=== PATIENT | female | born 1945 | race Caucasian/White ===

== ENCOUNTER 2017-02-19 18:00 | Inpatient (IN) ==
[2017-02-19] MEDS ORDERED: Ipratropium/Albuterol Neb 3 ML IH ONE (18:39)
[2017-02-19] MEDS ORDERED: methylPREDNISolone 125 MG/2 ML VIAL IVP ONE (18:39)
--- NOTE | 2017-02-19 18:41 | Emergency Department Note ---
START Narrative - START START: Patient emergency department with worsening shortness of breath. Coughing up colored phlegm. No fever. Has seen her primary provider bit on a Medrol pack, doxycycline, and breathing treatments. Getting worse. On exam she is visibly dyspneic. Diffuse expiratory wheezing and decreased air exchange. Plan. Steroids. Cardiac workup. Will be evaluated by overnight caregiver.
[2017-02-19] MEDS ORDERED: Levofloxacin 750 MG/150 ML 750 MG/150 ML BAG IVPB ONE (19:28)
[2017-02-19 19:29] LABS: Basophils % 0.3 %; Eosinophils # 0.2 K/mcL (0.0-0.6); Eosinophils % 1.8 %; Hematocrit 41.9 % (35.3-44.9); Hemoglobin 14.1 g/dL (11.5-15.4); Lymphocytes # 1.2 K/mcL (0.6-4.6); Lymphocytes % 12.6 %; Mean Corpuscular HGB Conc 33.7 g/dL (31.6-35.5); Mean Corpuscular Hemoglobin 30.9 pg (28.0-33.3); Mean Corpuscular Volume 91.9 fL (83.0-100.0); Monocytes # 0.8 K/mcL (0.0-1.3); Monocytes % 8.3 %; Neutrophils # 7.1 K/mcL (1.6-8.9); Platelet Count 285 K/mcL (140-400); Red Blood Count 4.56 M/mcL (3.82-4.97)
[2017-02-19 20:04] LABS: BUN/Creatinine Ratio 14 (6-26); Blood Urea Nitrogen 11 mg/dL (7-20); Calcium 9.9 mg/dL (8.6-10.8); Carbon Dioxide 28 mEq/L (19-29); Chloride 96 mEq/L (98-109); Glucose 109 mg/dL (70-99); Osmolality,Calculated 280 (280-300); Potassium 3.8 mEq/L (3.5-4.5); Sodium 135 mEq/L (136-145); eGFR For African Americans > 60 (> 60); eGFR For Non-African Americans > 60 (> 60)
--- NOTE | 2017-02-19 20:08 | Emergency Department Note ---
Disposition Clinical Impression: CAP (community acquired pneumonia), Acute exacerbation of chronic obstructive airways disease Disposition: Admitted As Inpatient Condition: Fair Forms: ED Satisfaction Letter Time of Disposition: 20:14 SOB HPI - General Chief Complaint: ED Shortness of Breath/Dyspnea Stated Complaint: MERRY Time Seen by Provider: 02/19/17 18:35 Source: patient, family Mode of arrival: ambulatory Limitations: no limitations Nursing Notes Reviewed: Yes Vital Signs Reviewed: Yes - History of Present Illness 71-year-old female history of COPD, hypertension and on 2 L at baseline, presents with shortness of breath cough and wheeze for the last week. Patient states that she has had multiple courses of antibiotics she was on azithromycin which she completed and then was prescribed doxycycline 2 days ago by her primary care physician. She had symptoms for about a week. She also has been prescribed a prednisone pack does not improve her symptoms. She takes daily albuterol and controller medications and not an provider symptoms, she is had admissions for COPD in the past but never been intubated. Patient is a nonsmoker for the last 10 years. She denies chest pain, reports subjective fevers and chills, denies abdominal pain nausea vomiting diarrhea hematuria hematemesis hematochezia Pt Subjective Complaint: shortness of breath Onset (ago): week(s) (1) Context: recent illness Severity: moderate Improves with: oxygen Worsens with: nothing Known history of: COPD Associated symptoms: Reports: denies other symptoms, fever, cough, wheezing. Denies: chest pain, pain with inspiration Treatment prior to arrival: none Cough present: Yes Cough Description: Voluntary Cough Frequency: Continuous Sputum production: No Sputum Amount: Scant Sputum Color: Clear - Related Data Previous Rx's Medication Instructions Recorded Levofloxacin [Levaquin] 750 mg PO DAILY #7 tablet 10/17/15 Promethazine/Codeine 5 ml PO Q6HR #240 ml 10/17/15 [Phenergan/Codeine] Allergies Allergy/AdvReac Type Severity Reaction Status Date / Time No Known Allergies Allergy Verified 02/19/17 18:09 All systems ED: reviewed and negative except as stated. Constitutional: Denies: fever, chills Eyes: Denies: eye pain, eye discharge Cardiovascular: Denies: chest pain, palpitations Respiratory: Reports: as per HPI, cough, dyspnea, wheezes, sputum production. Denies: hemoptysis Gastrointestinal: Denies: abdominal pain, nausea, vomiting Genitourinary: Denies: urgency, dysuria Musculoskeletal: Denies: back pain, neck pain Integumentary: Denies: rash, abrasion Neurological: Denies: headache, weakness Psychiatric: Denies: anxiety, depression Past Medical History - Past Medical History Attestation: Yes The following information was validated with the patient. Source: patient Medical history: Reports: COPD, hyperlipidemia Surgical history: Reports: no surgical history Psychiatric history: Reports: no psych history CORRECTIONAL PROBATION OFFICER history: Reports: no CORRECTIONAL PROBATION OFFICER history - Social History Smoking Status: Former smoker Smokeless Tobacco Status: No Alcohol use: Reports: none Drug use: Reports: none Physical Exam Constitutional: No respiratory distress, mild tachycardia. Hypoxia 93% on 2 L HEENT: NCAT, sclera anicteric, PERRLA bilaterally, normal external ears bilaterally, nasal septum nondeviated, average dentition, MMM Neck: normal inspection, neck is supple, trachea midline Resp: Coarse inspiratory and expiratory wheezes. CV: Tachycardia, no m/g/r GI: normal inspection, Soft, NTND, BS present Back: normal inspection, no tenderness to palpation Skin: No rashes, skin warm, dry, intact - General General appearance: alert, in no apparent distress Course Course Narrative: 89 female failed outpatient treatment for COPD and bronchitis with steroids and azithromycin and doxycycline regimens, patient with worsening cough shortness of breath, will get lactate blood cultures basic lab work and reassess. Ordering do nebs 3 respiratory therapy bedside Solu-Medrol IV - Reevaluation(s) Reevaluation #1: With some improvement in shortness of breath and wheezing, however still moderately dyspneic on 3 L which is greater than her home baseline oxygen, will admit to hospitalist ulcers are concerned for possible pneumonia on her x-rays will treat with Levaquin at this time Dr Farley accepting admission Time: 20:13 Vital Signs Temperature 98.4 F 02/19/17 18:07 Pulse Rate 107 02/19/17 18:07 Respiratory Rate 22 02/19/17 18:07 Blood Pressure 127/83 02/19/17 18:07 O2 Sat by Pulse Oximetry 92 L 02/19/17 18:07 Temperature 98.4 F 02/19/17 18:07 Pulse Rate 90 02/19/17 19:26 Respiratory Rate 18 02/19/17 19:28 Blood Pressure 122/83 02/19/17 19:26 O2 Sat by Pulse Oximetry 93 L 02/19/17 19:28 Oxygen Delivery Oxygen Delivery Nasal Cannula Shortness of Breath/Dyspnea - Differential Diagnosis Likely: acute exacerbation of chronic obstructive airways disease, congestive heart failure, pneumonia, pulmonary embolism - Medical Records Medical records reviewed: Yes I reviewed the patient's medical records. - Lab Data Lab results reviewed: Yes I reviewed the patient's lab results. Result diagrams: 02/19/17 19:25 02/19/17 19:25 Lab Results 02/19/17 02/19/17 02/19/17 Range/Units 19:25 19:25 19:25 WBC 9.4 (4.3-11.1) K/mcL RBC 4.56 (3.82-4.97) M/mcL Hgb 14.1 (11.5-15.4) g/dL Hct 41.9 (35.3-44.9) % MCV 91.9 (83.0-100.0) fL MCH 30.9 (28.0-33.3) pg MCHC 33.7 (31.6-35.5) g/dL RDW 13.0 (11.5-14.5) % Plt Count 285 (140-400) K/mcL MPV 9.0 L (9.4-12.4) fL Immature Gran % 1.0 (0-4) % Seg Neutrophils % 76.0 % Lymphocytes % 12.6 % Monocytes % 8.3 % Eosinophils % 1.8 % Basophils % 0.3 % Neutrophils # 7.1 (1.6-8.9) K/mcL Lymphocytes # 1.2 (0.6-4.6) K/mcL Monocytes # 0.8 (0.0-1.3) K/mcL Eosinophils # 0.2 (0.0-0.6) K/mcL Basophils # 0.0 (0.0-0.2) K/mcL Sodium 135 L (136-145) mEq/L Potassium 3.8 (3.5-4.5) mEq/L Chloride 96 L (98-109) mEq/L Carbon Dioxide 28 (19-29) mEq/L BUN 11 (7-20) mg/dL Creatinine 0.78 (0.57-1.11) mg/dL Est GFR ( Amer) > 60 (> 60) Est GFR (Non-Af Amer) > 60 (> 60) BUN/Creatinine Ratio 14 (6-26) Glucose 109 H (70-99) mg/dL Calculated Osmolality 280 (280-300) Calcium 9.9 (8.6-10.8) mg/dL Troponin I 0.00 (0-0.03) ng/mL B-Natriuretic Peptide (0-100) pg/mL 02/19/17 Range/Units 19:25 WBC (4.3-11.1) K/mcL RBC (3.82-4.97) M/mcL Hgb (11.5-15.4) g/dL Hct (35.3-44.9) % MCV (83.0-100.0) fL MCH (28.0-33.3) pg MCHC (31.6-35.5) g/dL RDW (11.5-14.5) % Plt Count (140-400) K/mcL MPV (9.4-12.4) fL Immature Gran % (0-4) % Seg Neutrophils % % Lymphocytes % % Monocytes % % Eosinophils % % Basophils % % Neutrophils # (1.6-8.9) K/mcL Lymphocytes # (0.6-4.6) K/mcL Monocytes # (0.0-1.3) K/mcL Eosinophils # (0.0-0.6) K/mcL Basophils # (0.0-0.2) K/mcL Sodium (136-145) mEq/L Potassium (3.5-4.5) mEq/L Chloride (98-109) mEq/L Carbon Dioxide (19-29) mEq/L BUN (7-20) mg/dL Creatinine (0.57-1.11) mg/dL Est GFR ( Amer) (> 60) Est GFR (Non-Af Amer) (> 60) BUN/Creatinine Ratio (6-26) Glucose (70-99) mg/dL Calculated Osmolality (280-300) Calcium (8.6-10.8) mg/dL Troponin I (0-0.03) ng/mL B-Natriuretic Peptide 33 (0-100) pg/mL - Radiology Data Radiology results reviewed: Yes I reviewed the patient's radiology results. Chest X-Ray 02/19/17 18:39 IMPRESSION: New bibasilar airspace consolidation, representing either aspiration or pneumonia. RECOMMENDATION: Suggest appropriate clinical treatment, and chest x-ray follow-up in 2-4 weeks, to ensure resolution of these opacities and stability of the scattered pulmonary nodules. D/ / 02/19/2017 19:01:41 Tyrell Springer MD / [facility] [place] Interpreting Provider: Tyrell Springer MD - EKG Data EKG attestation: Yes I reviewed and interpreted this EKG. EKG shows normal: Reports: sinus rhythm Rate: Reports: normal (95 bpm WI interval 126 QRS at [address] segment elevations or depressions, flattened T waves in lead V3 and V2 and V4) Rhythm: Reports: NSR [place]/QRS: Reports: normal When compared to previous EKG there are: no significant changes Interpretation: Reports: unchanged when compared to prior tracing (date) - Core Measures AMI Core Measures Followed: No
--- NOTE | 2017-02-19 20:10 | Emergency Department Note ---
START Narrative - START START: I examined this patient and my medical decision-making was reviewed with the CONDITIONER TUMBLER OPERATOR/PA/Advanced Practice Nurse/Resident Physician. I agree with the documented findings, disposition and treatment plan as described except to the extent set forth below. ED attending note: Patient seen with emergency medicine resident Dr. Arias. Please see a copy of his note for details of the H&P, evaluation, management and disposition of this patient. We independently had [id number] contact with the patient Briefly: 71-year-old female COPD or presents with increasing shortness of breath cough and weakness. ED workup is completed. Showing new bibasal infiltrates consistent with possible pneumonia. Patient is still wheezy after 3 DuoNeb treatments. Provided 45 minutes of critical care services for this patient. Patient getting IV Levaquin & admission.
[2017-02-19] MEDS ORDERED: Albuterol 2.5 MG/3 ML NEBULIZER IH PRN (21:27)
[2017-02-19] MEDS ORDERED: Naloxone 0.4 MG/ML INJ IVP PRN (21:56)
--- NOTE | 2017-02-19 22:09 | Internal Med History&Physical ---
<Padma Curran M - Last Filed: 02/19/17 23:06> Date of Encounter: 02/19/17 Time of Encounter: 22:03 Assessment and Plan (1) Sepsis Current visit: Yes Status: Acute Patient with pneumonia, tachypnea and tachycardia, meeting sepsis criteria. Patient is afebrile and WBC is normal at 9.4. Blood cultures drawn and sent. Lactic acid normal at 1.2. IV fluids 0.9NS at 75mL/hr. Qualifiers: Sepsis type: sepsis due to unspecified organism Qualified Code(s): A41.9 - Sepsis, unspecified organism (2) CAP (community acquired pneumonia) Current visit: Yes Status: Acute Patient has had treatment with azithromycin as an outpatient and started on doxycycline 2 days ago, with worsening of symptoms. CXR shows new bibasilar consolidations and scattered pulmonary nodules. lactate normal at 1.2. IVPB levaquin daily Iv fluids 0.9NS at 75mL/hr duoneb treatments QID albuterol nebulizer Q2hr PRN titrate oxygen to maintain O2 sat > 90% (3) Acute exacerbation of chronic obstructive airways disease Current visit: Yes Status: Acute Patient with COPD, wears 2L of O2 at home. She's had worsening shortness of breath and productive cough over the last few weeks. She has been treated as an outpatient with oral steroids and azithromycin, with continued worsening of her symptoms. duoneb treatments QID albuterol nebulizer Q2 prn Symbicort BID titrate oxygen to maintain O2 sats > 92% Solumedrol 40mg IVP Q6hrs (4) Acute and chronic respiratory failure Current visit: Yes Status: Acute Patient wears 2L of O2 at home, now requiring 3L to maintain saturations > 90%. Patient is tachypnic with increased work of breathing on exam. continuous pulse oximetry consulted respiratory therapy for bipap overnight if necessary to maintain saturations. Qualifiers: Respiratory failure complication: hypoxia Qualified Code(s): J96.21 - Acute and chronic respiratory failure with hypoxia (5) DVT prophylaxis Current visit: Yes Status: Acute ambulate with assistance anti-embolic stockings Lovenox 40mg SQ daily Internal Medicine - H&P: HPI Chief complaint: shortness of breath Admitted From: Emergency Dept Plans for Post Hospital Care: Home History of present illness: Ms. Castillo is a 71 year old female with COPD, hyperlipidemia who presented to the emergency department today with worsening shortness of breath and productive cough. Patient reports she has been sick for several weeks, and has had a Z-Josh as an outpatient as well as oral steroids and just started on doxycycline, however her shortness of breath and productive cough continued to worsen. Cough is productive of thick yellow sputum. Shortness of breath worsens with activity and with talking. She reports she has had a poor appetite over the last several days as well. She denies any headache, lightheadedness, chest pain, palpitations. Denies any nausea, vomiting, abdominal pain, diarrhea. She denies any fever, chills, or sweats. Evaluation in the emergency department included a chest x-ray which showed new bibasilar airspace consolidation, representing either aspiration or pneumonia as well as scattered pulmonary nodules. White count was normal at 9.4, troponin was negative at 0.0, BNP was normal at 33. CT showed normal sinus rhythm. Lactic acid was normal at 1.2. Patient was to Respiration rate ranging from 20-28 she was also mildly tachycardic with heart rate 90-107 in the emergency room. She normally wears 2 L of nasal cannula at home, and is requiring 3 L to maintain her saturations. On exam, patient is alert and oriented. She is dyspneic and tachypneic, with increased work of breathing and use of accessory muscles. Heart has regular rate and rhythm. Past Med Surg Social Fam HX - Past Medical History Medical history: COPD, hyperlipidemia Psychiatric history: no psych history - Past Surgical History Surgical History: no surgical history - Social History Smoking Status: Former smoker (60 pack year history) Smokeless Tobacco Status: No Alcohol use: none Drug use: none - Family History Mother Family Member Ethnicity: Non- Living Status: Age at : 97 Cause of : "Old Age" Hx Family Cardiac Disorders: Yes (Blood Clots) Father Family Member Ethnicity: Non- Living Status: Age at : 80 Cause of : Stoke Hx Family Cardiac Disorders: Yes (Stroke) Internal Medicine - H&P: Meds Levofloxacin [Levaquin] 750 mg PO DAILY #7 tablet 10/17/15 [Rx] Promethazine/Codeine [Phenergan/Codeine] 5 ml PO Q6HR #240 ml 10/17/15 [Rx] Atorvastatin 40 mg PO DAILY 02/19/17 [History] Doxycycline 100 mg PO Q12HR 02/19/17 [History] Symbicort 80/4.5 2 puff IH BID 02/19/17 [History] Allergies No Known Allergies Allergy (Verified 02/19/17 18:09) All Systems PM: A 10-system review of systems was performed and is negative for pertinent findings except as documented above in the HPI. - Constitutional Constitutional: no chills, no fever(s), no night sweats - EENT Eyes: no change in vision, no discharge, no pain, no photophobia Ears: no ear discharge, no ear pain, no tinnitus Nose, mouth and throat: no dysphagia, no nasal discharge, no neck pain, no sore throat - Cardiovascular Cardiovascular ROS IM: dyspnea, dyspnea on exertion, no chest pain, no diaphoresis, no lightheadedness, no palpitations, no syncope - Respiratory Respiratory: cough, dyspnea, dyspnea on exertion, wheezing, excessive phlegm production - Gastrointestinal Gastrointestinal: no abdominal pain, no diarrhea, no hematemesis, no hematochezia, no melena, no nausea, no vomiting - Genitourinary Genitourinary: no change in urinary stream, no dysuria, no flank pain, no hematuria - Musculoskeletal Musculoskeletal ROS IM: no numbness, no tingling - Integumentary Integumentary IM: no rash, no unusual bruising - Neurological Neurological ROS: no confusion, no convulsions, no focal weakness, no numbness, no tingling, no tremor(s) - Hematologic/Lymphatic Hematologic/Lymphatic: no easy bruising - Constitutional Vitals: Temp Pulse Resp BP Pulse Ox 98.4 F 107 28 107/71 92 L 02/19/17 21:29 02/19/17 21:29 02/19/17 21:29 02/19/17 21:29 02/19/17 21:29 General appearance: Present: mild distress, A&O X 3, pleasant - Head Head exam: Present: atraumatic, normocephalic - Eye Eye exam: Present: PERRL, conjuntiva pink, sclera anicteric Pupils: Present: PERRL - Neck Neck exam general surgery: Present: supple, trachea midline. Absent: lymphadenopathy - Respiratory Respiratory exam: Present: decreased breath sounds (in bilateral bases), rhonchi. Absent: accessory muscle use, rales, wheezes - Cardiovascular Cardiovascular exam: Present: RRR, +S1, +S2. Absent: diastolic murmur, gallop, rubs, systolic murmur - GI/Abdominal GI/Abdominal exam: Present: normal bowel sounds, soft, no peritoneal signs. Absent: distended, tenderness - Extremities Exam Extremities exam: Present: warm, radial pulses palpable and symetrical. Absent : calf tenderness, cyanotic, pedal edema - Neurological Exam Neurological exam: Present: CN II-XII intact, oriented X3, no focal deficits. Absent: pronater drift, facial droop, speech deficit - Skin Skin exam: Present: dry, intact Internal Med - H&P Results - Labs CBC & Chem 7: 02/19/17 19:25 02/19/17 19:25 Labs: All Lab Results (24 Hours) 02/19/17 02/19/17 02/19/17 Range/Units 19:25 19:25 19:25 WBC 9.4 (4.3-11.1) K/mcL RBC 4.56 (3.82-4.97) M/mcL Hgb 14.1 (11.5-15.4) g/dL Hct 41.9 (35.3-44.9) % MCV 91.9 (83.0-100.0) fL MCH 30.9 (28.0-33.3) pg MCHC 33.7 (31.6-35.5) g/dL RDW 13.0 (11.5-14.5) % Plt Count 285 (140-400) K/mcL MPV 9.0 L (9.4-12.4) fL Immature Gran % 1.0 (0-4) % Seg Neutrophils % 76.0 % Lymphocytes % 12.6 % Monocytes % 8.3 % Eosinophils % 1.8 % Basophils % 0.3 % Neutrophils # 7.1 (1.6-8.9) K/mcL Lymphocytes # 1.2 (0.6-4.6) K/mcL Monocytes # 0.8 (0.0-1.3) K/mcL Eosinophils # 0.2 (0.0-0.6) K/mcL Basophils # 0.0 (0.0-0.2) K/mcL Sodium 135 L (136-145) mEq/L Potassium 3.8 (3.5-4.5) mEq/L Chloride 96 L (98-109) mEq/L Carbon Dioxide 28 (19-29) mEq/L BUN 11 (7-20) mg/dL Creatinine 0.78 (0.57-1.11) mg/dL Est GFR ( Amer) > 60 (> 60) Est GFR (Non-Af Amer) > 60 (> 60) BUN/Creatinine Ratio 14 (6-26) Glucose 109 H (70-99) mg/dL Calculated Osmolality 280 (280-300) Lactic Acid (0.5-2.2) mmol/L Calcium 9.9 (8.6-10.8) mg/dL Troponin I 0.00 (0-0.03) ng/mL B-Natriuretic Peptide (0-100) pg/mL 02/19/17 02/19/17 Range/Units 19:25 20:29 WBC (4.3-11.1) K/mcL RBC (3.82-4.97) M/mcL Hgb (11.5-15.4) g/dL Hct (35.3-44.9) % MCV (83.0-100.0) fL MCH (28.0-33.3) pg MCHC (31.6-35.5) g/dL RDW (11.5-14.5) % Plt Count (140-400) K/mcL MPV (9.4-12.4) fL Immature Gran % (0-4) % Seg Neutrophils % % Lymphocytes % % Monocytes % % Eosinophils % % Basophils % % Neutrophils # (1.6-8.9) K/mcL Lymphocytes # (0.6-4.6) K/mcL Monocytes # (0.0-1.3) K/mcL Eosinophils # (0.0-0.6) K/mcL Basophils # (0.0-0.2) K/mcL Sodium (136-145) mEq/L Potassium (3.5-4.5) mEq/L Chloride (98-109) mEq/L Carbon Dioxide (19-29) mEq/L BUN (7-20) mg/dL Creatinine (0.57-1.11) mg/dL Est GFR ( Amer) (> 60) Est GFR (Non-Af Amer) (> 60) BUN/Creatinine Ratio (6-26) Glucose (70-99) mg/dL Calculated Osmolality (280-300) Lactic Acid 1.2 (0.5-2.2) mmol/L Calcium (8.6-10.8) mg/dL Troponin I (0-0.03) ng/mL B-Natriuretic Peptide 33 (0-100) pg/mL - Diagnostic Studies Chest x-ray Additional comments: Chest X-Ray 02/19/17 18:39 IMPRESSION: New bibasilar airspace consolidation, representing either aspiration or pneumonia. RECOMMENDATION: Suggest appropriate clinical treatment, and chest x-ray follow-up in 2-4 weeks, to ensure resolution of these opacities and stability of the scattered pulmonary nodules. D/ / 02/19/2017 19:01:41 Tyrell Springer MD / [place] Interpreting Provider: Tyrell Springer MD <Titus Farley - Last Filed: 02/19/17 23:54> Internal Medicine - H&P: HPI History of present illness: Ms. Castillo is a 71 year old female All Systems PM: A 10-system review of systems was performed and is negative for pertinent findings except as documented above in the HPI. - Constitutional Vitals: Temp Pulse Resp BP Pulse Ox 98.7 F 98 16 103/73 96 02/19/17 23:17 02/19/17 23:17 02/19/17 23:18 02/19/17 23:17 02/19/17 23:18 Internal Med - H&P Results - Labs CBC & Chem 7: 02/19/17 19:25 02/19/17 19:25 - Attending Attestation I examined this patient and my medical decision-making was reviewed with the MANAGER PHOTO/PA/Advanced Practice Nurse/Resident Physician. I agree with the documented findings, disposition and treatment plan as described except to the extent set forth below. Patient with COPD, admitted with an exacerbation secondary to pneumonia. Continue with IV antibiotics, systemic steroids and nebulizer treatment.
[2017-02-19] MEDS: 0.9 % Sodium Chloride 1,000 ML IVC SCH (22:57)
[2017-02-19] MEDS: Budesonide/Formoterol 160/4.5 MDI IH SCH (23:18)
[2017-02-19] MEDS: Ipratropium/Albuterol Neb 3 ML IH SCH (23:18)
[2017-02-20] MEDS ORDERED: MethylPREDNISolone 40 MG/ML VIAL IVP SCH
[2017-02-20] MEDS: MethylPREDNISolone 40 MG/ML VIAL IVP SCH ×3 (04:00→20:38)
[2017-02-20] MEDS: Ipratropium/Albuterol Neb 3 ML IH SCH ×4 (04:16→23:05)
[2017-02-20 05:43] LABS: Basophils % 0.1 %; Hematocrit 35.1 % (35.3-44.9); Immature Granulocytes % 1.3 % (0-4); Lymphocytes # 0.7 K/mcL (0.6-4.6); Lymphocytes % 8.5 %; Mean Corpuscular Hemoglobin 31.1 pg (28.0-33.3); Mean Corpuscular Volume 94.1 fL (83.0-100.0); Mean Platelet Volume 9.6 fL (9.4-12.4); Monocytes # 0.1 K/mcL (0.0-1.3); Monocytes % 1.8 %; Neutrophils # 6.9 K/mcL (1.6-8.9); Platelet Count 250 K/mcL (140-400); Red Blood Count 3.73 M/mcL (3.82-4.97); Segmented Neutrophils % 88.3 %
[2017-02-20 05:44] LABS: Hemoglobin 11.6 g/dL (11.5-15.4)
[2017-02-20 05:58] LABS: BUN/Creatinine Ratio 13 (6-26); Blood Urea Nitrogen 11 mg/dL (7-20); Calcium 8.8 mg/dL (8.6-10.8); Carbon Dioxide 29 mEq/L (19-29); Chloride 97 mEq/L (98-109); Glucose 233 mg/dL (70-99); Osmolality,Calculated 287 (280-300); Potassium 3.8 mEq/L (3.5-4.5); Sodium 135 mEq/L (136-145); eGFR For African Americans > 60 (> 60); eGFR For Non-African Americans > 60 (> 60)
[2017-02-20] MEDS: *HR* Enoxaparin 40 MG/0.4 ML SYRINGE SQ SCH (06:38)
[2017-02-20] MEDS: Budesonide/Formoterol 160/4.5 MDI IH SCH (10:37)
[2017-02-20] MEDS: 0.9 % Sodium Chloride 1,000 ML IVC SCH (12:38)
--- NOTE | 2017-02-20 17:49 | Internal Med Progress Note ---
<Eloisa Snyder - Last Filed: 02/20/17 18:04> Date of Encounter: 02/20/17 Time of Encounter: 17:37 - Assessment and plan (1) Sepsis Current Visit: Yes Status: Resolved Assessment and plan: Resolved Patient has tachypnea and tachycardia on presentation. No fever or leukocytosis. Infectious source pneumonia Blood cultures drawn and no reports yet Lactic acid normal WBC normal this morning Tachypnea improved Tachycardia improved Will continue to monitor vitals Qualifiers: Sepsis type: sepsis due to unspecified organism Qualified Code(s): A41.9 - Sepsis, unspecified organism (2) CAP (community acquired pneumonia) Current Visit: Yes Status: Acute Assessment and plan: Patient recently treated outpatient with azithromycin and prednisone. Treated with doxycycline for 2 days prior to arrival. Had worsening of symptoms prior to arrival. Continue IV levaquin at 750 mg daily Continue IV fluids Will continue scheduled duonebs Continue IV steroids q 8 hours Continue albuterol nebulizer PRN (3) Acute and chronic respiratory failure Current Visit: Yes Status: Acute Assessment and plan: Improving Patient with increased oxygen requirement on arrival from baseline 2L to 3L Likely secondary to community acquired pneumonia and acute exacerbation of underlying COPD Oxygen requirements back to baseline 2L this morning Treatment as per pneumonia and COPD Qualifiers: Respiratory failure complication: hypoxia Qualified Code(s): J96.21 - Acute and chronic respiratory failure with hypoxia (4) Acute exacerbation of chronic obstructive airways disease Current Visit: Yes Status: Acute Assessment and plan: Likely secondary to underlying pneumonia Given use of IV steroids, will hold symbicort while in hospital. Remainder of treatment as per pneumonia - Subjective Interval history: Patient seen and examined this morning. Patient admitted overnight for increasing shortness of breath and dyspnea and found to have increased oxygen requirement on presentation to the ER of 3L from her baseline of 2L. Oateint with known history of COPD. She was treated outpatient with a z-pack and prednisone 2 weeks prior to arrival then was given doxycyline for 2 days to presentation. She had increased sputum production. Was started on treatment with IV steroids, levaquin and duonebs scheduled. Today patient reports a slight improvement in shortness of breath. She still feels like she is having difficulty breathing and can not catch her breath. She is tolerating a general diet with no nausea of vomiting. She has no other acute concerns or complaints at this time. - Constitutional Vitals: Temp Pulse Resp BP Pulse Ox 97.2 F L 87 17 112/73 96 02/20/17 16:20 02/20/17 16:20 02/20/17 16:20 02/20/17 16:20 02/20/17 16:20 General appearance: Present: mild distress, A&O X 3, pleasant - Head Head exam: Present: atraumatic, normocephalic - Eye Eye exam: Present: normal appearance. Absent: conjunctival injection - ENT ENT exam: Present: mucous membranes moist, normal external ear exam Additional comments: nasal canula in place - Neck Neck exam general surgery: Present: supple, trachea midline - Respiratory Respiratory exam: Present: wheezes (end expiratory bilaterally ). Absent: rales , rhonchi, stridor - Cardiovascular Cardiovascular exam: Present: RRR, +S1, +S2. Absent: clicks, diastolic murmur, gallop, rubs, systolic murmur - GI/Abdominal GI/Abdominal exam: Present: normal bowel sounds, soft. Absent: distended, guarding, rebound, tenderness - Extremities Exam Extremities exam: Present: normal capillary refill. Absent: pedal edema - Psychiatric Psychiatric exam: Present: normal affect, normal mood Internal Medicine: Result - Labs CBC & Chem 7: 02/20/17 05:14 02/20/17 05:14 Labs: Short CBC 02/20/17 Range/Units 05:14 WBC 7.8 (4.3-11.1) K/mcL Hgb 11.6 D (11.5-15.4) g/dL Hct 35.1 L (35.3-44.9) % Plt Count 250 (140-400) K/mcL Neutrophils # 6.9 (1.6-8.9) K/mcL BMP 02/20/17 05:14 Sodium 135 L Potassium 3.8 Chloride 97 L Carbon Dioxide 29 BUN 11 Creatinine 0.82 Glucose 233 H Calcium 8.8 - VTE Documentation of Mechanical Device: Graduated compression elastic hosiery Consult Discharge Plan - Plan Referrals: Unassigned,Provider [Non-Partnered Physician] - <Tom Schmitt - Last Filed: 02/20/17 18:19> - Assessment and plan (1) Acute and chronic respiratory failure Current Visit: Yes Status: Acute Qualifiers: Respiratory failure complication: hypoxia Qualified Code(s): J96.21 - Acute and chronic respiratory failure with hypoxia (2) Acute exacerbation of chronic obstructive airways disease Current Visit: Yes Status: Acute (3) CAP (community acquired pneumonia) Current Visit: Yes Status: Acute - Constitutional Vitals: Temp Pulse Resp BP Pulse Ox 97.2 F L 87 17 112/73 96 02/20/17 16:20 02/20/17 16:20 02/20/17 16:20 02/20/17 16:20 02/20/17 16:20 Internal Medicine: Result - Labs CBC & Chem 7: 02/20/17 05:14 02/20/17 05:14 Labs: Short CBC 02/20/17 Range/Units 05:14 WBC 7.8 (4.3-11.1) K/mcL Hgb 11.6 D (11.5-15.4) g/dL Hct 35.1 L (35.3-44.9) % Plt Count 250 (140-400) K/mcL Neutrophils # 6.9 (1.6-8.9) K/mcL BMP 02/20/17 05:14 Sodium 135 L Potassium 3.8 Chloride 97 L Carbon Dioxide 29 BUN 11 Creatinine 0.82 Glucose 233 H Calcium 8.8 - Attending Attestation I examined this patient and my medical decision-making was reviewed with the Resident Physician on 02/20/17. I agree with the documented findings, disposition and treatment plan as described except to the extent set forth below. Ms. Castillo is currently admitted for acute hypoxia and exacerbation of COPD. She is moderate to high risk due to potential for worsening respiratory status. Ms. Castillo feels a little better but not baseline. Her oxygen is back to baseline liters. No CP. No fever or chills but still with cough. No abd pain or GI symptoms. Exam Alert. Comfortable Heart reg Lungs with rhonchi I/P 1. Acute on chronic hypoxic resp failure 2. Acute exac COPD Further diagnoses and plan as above.
[2017-02-20] MEDS ORDERED: Levofloxacin 750 MG/150 ML 750 MG/150 ML BAG IVPB SCH (20:00)
[2017-02-21] MEDS: MethylPREDNISolone 40 MG/ML VIAL IVP SCH (03:51)
[2017-02-21] MEDS: 0.9 % Sodium Chloride 1,000 ML IVC SCH (03:51)
[2017-02-21] MEDS ORDERED: Benzonatate 100 MG CAPSULE PO PRN (04:00)
[2017-02-21] MEDS: Ipratropium/Albuterol Neb 3 ML IH SCH ×3 (04:04→15:41)
[2017-02-21] MEDS: *HR* Enoxaparin 40 MG/0.4 ML SYRINGE SQ SCH (05:30)
[2017-02-21 07:02] VITALS: BP 106/73
--- NOTE | 2017-02-21 08:18 | Electrocardiograph Report ---
[place] [id number] Test Date: 2017-02-19 Pat Name: Lillian Castillo Department: 104 Room: 2A12 Gender: F Data Consultant: MAURICE : [id number] Requested By: Madhavi See Order Number: [id number] Reading MD: Gonzalez Marin MD Measurements Intervals [place] Rate: 95 P: 60 OR: 126 QRS: 44 QRSD: 65 T: 0 QT: 285 QTc: 338 Interpretive Statements SINUS RHYTHM LOW QRS VOLTAGE IN EXTREMITY LEADS Electronically Signed On 02-21-2017 8:17:00 EDT by Gonzalez Marin MD
--- NOTE | 2017-02-21 10:13 | Discharge Summary ---
Date of Encounter: 02/21/17 Time of Encounter: 10:10 - Discharge Diagnosis (1) Acute and chronic respiratory failure Priority: Primary Status: Acute Qualifiers: Respiratory failure complication: hypoxia Qualified Code(s): J96.21 - Acute and chronic respiratory failure with hypoxia (2) Acute exacerbation of chronic obstructive airways disease Priority: Primary Status: Acute (3) CAP (community acquired pneumonia) Priority: Primary Status: Acute - Discharge Medications Prescriptions: Albuterol Neb [Proventil Neb] 2.5 mg IH Q2H PRN 30 Days PRN Reason: Shortness Of Breath/Wheezing GuaiFENesin ER [Mucinex] 600 mg PO BID 10 Days Levofloxacin 750 mg PO DAILY #3 tablet PredniSONE See Taper PO DAILY 20 Days Home Medications: Albuterol Neb [Proventil Neb] 2.5 mg IH Q6H 02/20/17 [History] Albuterol Sulfate [Ventolin Hfa] 2 puff IH Q4-6H PRN 02/20/17 [History] Oxygen 2 l NS CONT 02/20/17 [History] Albuterol Neb [Proventil Neb] 2.5 mg IH Q2H PRN 30 Days 02/21/17 [Rx] GuaiFENesin ER [Mucinex] 600 mg PO BID 10 Days 02/21/17 [Rx] Levofloxacin 750 mg PO DAILY #3 tablet 02/21/17 [Rx] PredniSONE See Taper PO DAILY 20 Days 02/21/17 [Rx] Allergies/Adverse Reactions: Allergies No Known Allergies Allergy (Verified 02/19/17 18:09) Date of admission: 02/19/17 21:00 Primary care physician: Yumiko Robbins CNP Discharging clinician: Nanette Ross Anticipated date of discharge: 02/21/17 - Patient Status Disposition: Home, Self-Care Condition: Fair Functional capacity at discharge: uses cane/walker Overall status at discharge: patient is back to baseline - Discharge Instructions Instructions: Chronic Obstructive Pulmonary Disease (DC), Sepsis (DC), Pneumonia (DC) Follow Up With: Yumiko Robbins CNP [Primary Care Provider] - 02/28/17 9:40 am - Diet and Activity Activity: resume usual activities as tolerated, wear oxygen at all times Diet: advance to your usual diet Interval History: Ms. Castillo is a 71 year old female with COPD, hyperlipidemia who presented to the emergency department today with worsening shortness of breath and productive cough. Patient admitted overnight for increasing shortness of breath and dyspnea and found to have increased oxygen requirement on presentation to the ER of 3L from her baseline of 2L. patient with known history of COPD. She was treated outpatient with a z-pack and prednisone 2 weeks prior to arrival then was given doxycyline for 2 days to presentation. She had increased sputum production. Evaluation in the emergency department included a chest x-ray which showed new bibasilar airspace consolidation, representing either aspiration or pneumonia as well as scattered pulmonary nodules. White count was normal at 9.4 , troponin was negative at 0.0, BNP was normal at 33. EKG showed normal sinus rhythm. Lactic acid was normal at 1.2. She normally wears 2 L of nasal cannula at home, and is requiring 3 L to maintain her saturations. she was admmitted for acute respiratory failure with sepsis secondary to community-acquired pneumonia. Was started on treatment with IV steroids, levaquin and duonebs scheduled. She improved clinically on the above treatment, blood cultures came out negative. She was saturating 95% on 2 L of nasal cannula. She is being discharged today in stable condition on oral levofloxacin to complete 7 days of treatment. Hospital course: Ms. Castillo is a 71 year old female Time spent discussing smoking cessation with patient: more than 10 minutes - Time Spent with Patient Total time spent providing and/or coordinating discharge services: Greater than 30 minutes - Constitutional Vitals: Temp Pulse Resp BP Pulse Ox 98.1 F 89 17 106/73 95 02/21/17 06:59 02/21/17 06:59 02/21/17 06:59 02/21/17 06:59 02/21/17 08:37 General appearance: Present: A&O X 3, pleasant, no acute distress Exam: - Head Head exam: Present: atraumatic, normocephalic - Eye Eye exam: Present: normal appearance. Absent: conjunctival injection - ENT ENT exam: Present: mucous membranes moist, normal external ear exam Additional comments: nasal canula in place - Neck Neck exam general surgery: Present: supple, trachea midline - Respiratory Respiratory exam: Present: Bilaterally clear. - Cardiovascular Cardiovascular exam: Present: RRR, +S1, +S2. Absent: clicks, diastolic murmur, gallop, rubs, systolic murmur - GI/Abdominal GI/Abdominal exam: Present: normal bowel sounds, soft. Absent: distended, guarding, rebound, tenderness - Extremities Exam Extremities exam: Present: normal capillary refill. Absent: pedal edema - Psychiatric Psychiatric exam: Present: normal affect, normal mood - VTE Documentation of Mechanical Device: Graduated compression elastic hosiery
[2017-02-21] MEDS ORDERED: predniSONE 20 MG TABLET PO SCH (14:00)
== END 2017-02-21 16:50 | disposition home or self-care (01) | DRG 871 ==
LOC: EMEROO 18:00 → SUATTDRO 21:00 → 2ANU 21:00
PROVIDERS: ADMIT Internal Medicine; ATTEND Internal Medicine Endocrinology, Diabetes & Metabolism

== ENCOUNTER 2021-11-29 09:00 | Inpatient (IN) ==
[2021-11-29] MEDS ORDERED: Ipratropium/Albuterol Neb 3 ML IH ONE (09:11)
[2021-11-29] MEDS ORDERED: methylPREDNISolone 125 MG/2 ML VIAL IVP ONE (09:11)
[2021-11-29 09:57] LABS: Basophils # 0.1 K/mcL (0.0-0.2); Basophils % 0.7 %; Eosinophils % 0.3 %; Hemoglobin 15.1 g/dL (11.5-15.4); Immature Granulocytes % 0.4 % (0-4); Lymphocytes # 0.7 K/mcL (0.6-4.6); Lymphocytes % 9.8 %; Mean Corpuscular HGB Conc 33.6 g/dL (31.6-35.5); Mean Corpuscular Hemoglobin 30.3 pg (28.0-33.3); Mean Corpuscular Volume 90.4 fL (83.0-100.0); Mean Platelet Volume 9.7 fL (9.4-12.4); Monocytes # 0.8 K/mcL (0.0-1.3); Monocytes % 11.1 %; Neutrophils # 5.5 K/mcL (1.6-8.9); Platelet Count 222 K/mcL (140-400); Red Blood Count 4.98 M/mcL (3.82-4.97); Red Cell Distribution Width 12.7 % (11.5-14.5); Segmented Neutrophils % 77.7 %; White Blood Count 7.1 K/mcL (4.3-11.1)
[2021-11-29 10:20] LABS: Alanine Aminotransferase 18 Units/L (7-52); Albumin 4.2 g/dL (3.5-5.7); Albumin/Globulin Ratio 1.3 (1.1-2.2); Alkaline Phosphatase 126 Units/L (34-104); Aspartate Amino Transferase 28 Units/L (13-39); BUN/Creatinine Ratio 29 (6-26); Bilirubin,Direct 0.2 mg/dL (0.0-0.2); Bilirubin,Total 1.2 mg/dL (0.3-1.0); Blood Urea Nitrogen 16 mg/dL (8-23); Calcium 9.4 mg/dL (8.6-10.3); Carbon Dioxide 26 mEq/L (23-29); Chloride 101 mEq/L (98-107); Globulin 3.3 g/dL (2.4-3.5); Glucose 113 mg/dL (70-105); Osmolality,Calculated 276 (280-300); Sodium 132 mEq/L (136-145); Total Protein 7.5 g/dL (6.4-8.9); Troponin I < 0.03 ng/mL (< 0.04); eGFR For African Americans > 60 (> 60); eGFR For Non-African Americans > 60 (> 60)
[2021-11-29] MEDS ORDERED: Ondansetron 4 MG/2 ML VIAL IVP PRN (12:13)
[2021-11-29] MEDS ORDERED: Naloxone 0.4 MG/ML INJ IVP PRN (12:13)
[2021-11-29 12:26] LABS: Influenza A PCR Negative (Negative); Influenza B PCR Negative (Negative); Resp. Syncytial Virus PCR Negative (Negative)
[2021-11-29 12:31] LABS: SARS-CoV-2 by PCR (In House) Negative (Negative)
[2021-11-29 13:34] LABS: Bilirubin,Urine Negative (Negative); Blood,Urine Small (Negative); Clarity,Urine Clear (Clear); Color,Urine Yellow (Yellow); Glucose,Urine (UA) Normal (Normal); Hyaline Casts,Urine Few per lpf (None Seen); Ketones,Urine >150 mg/dL (Negative); Leukocyte Esterase,Urine Negative (Negative); Mucus,Urine Few per lpf (None-Few); Nitrite,Urine Negative (Negative); PH,Urine 5.5 pH Units (5.0-8.0); Protein,Urine 70 mg/dL (Neg-Trace); Specific Gravity,Urine 1.029 (1.010-1.025); Squamous Epithelial Cell,Urine Few per hpf (None-Few); Urobilinogen,Urine Normal (Normal); WBC,Urine 0-3 per hpf (0-3)
[2021-11-29] MEDS ORDERED: *HR* LORazepam 2 MG/ML VIAL IVP ONE (14:25)
[2021-11-29] MEDS: Azithromycin 500 MG in 0.9 % Sodium Chloride 250 ML IVPB SCH (14:30)
[2021-11-29] MEDS: *HR* Heparin 5,000 UNIT/ML VIAL SQ SCH ×2 (14:36→21:22)
[2021-11-29] MEDS: Ipratropium/Albuterol Neb 3 ML IH SCH ×3 (16:01→23:17)
[2021-11-29] MEDS: MethylPREDNISolone 40 MG/ML VIAL IVP SCH (16:36)
[2021-11-29] MEDS: Budesonide/Formoterol 160/4.5 1 PUFF INH IH SCH (19:37)
[2021-11-30] MEDS: MethylPREDNISolone 40 MG/ML VIAL IVP SCH ×3 (00:25→14:50)
[2021-11-30 01:50] LABS: Basophils % 0.1 %; Hematocrit 40.3 % (35.3-44.9); Immature Granulocytes % 0.3 % (0-4); Lymphocytes # 0.6 K/mcL (0.6-4.6); Lymphocytes % 8.2 %; Mean Corpuscular HGB Conc 32.3 g/dL (31.6-35.5); Mean Corpuscular Hemoglobin 29.1 pg (28.0-33.3); Mean Corpuscular Volume 90.2 fL (83.0-100.0); Mean Platelet Volume 10.3 fL (9.4-12.4); Monocytes # 0.5 K/mcL (0.0-1.3); Monocytes % 6.5 %; Platelet Count 228 K/mcL (140-400); Red Blood Count 4.47 M/mcL (3.82-4.97); Red Cell Distribution Width 12.8 % (11.5-14.5); Segmented Neutrophils % 84.9 %; White Blood Count 7.1 K/mcL (4.3-11.1)
[2021-11-30 02:00] LABS: BUN/Creatinine Ratio 37 (6-26); Blood Urea Nitrogen 18 mg/dL (8-23); Calcium 9.1 mg/dL (8.6-10.3); Carbon Dioxide 26 mEq/L (23-29); Chloride 102 mEq/L (98-107); Glucose 145 mg/dL (70-105); Magnesium 2.1 mg/dL (1.6-2.6); Osmolality,Calculated 288 (280-300); Potassium 4.3 mEq/L (3.5-5.1); Sodium 137 mEq/L (136-145); eGFR For African Americans > 60 (> 60); eGFR For Non-African Americans > 60 (> 60)
[2021-11-30] MEDS: Ipratropium/Albuterol Neb 3 ML IH SCH ×5 (04:05→20:14)
[2021-11-30] MEDS: *HR* Heparin 5,000 UNIT/ML VIAL SQ SCH ×3 (05:09→20:49)
[2021-11-30] MEDS: Budesonide/Formoterol 160/4.5 1 PUFF INH IH SCH ×2 (07:35→20:14)
[2021-11-30] MEDS: *HR* Acetylcysteine 20% 600 MG/3 ML ORAL SYRINGE PO SCH (10:01)
[2021-11-30] MEDS: Roflumilast [Daliresp] 500 MCG Tablet PO SCH (10:01)
[2021-11-30] MEDS: Azithromycin 500 MG in 0.9 % Sodium Chloride 250 ML IVPB SCH (13:43)
[2021-12-01] MEDS: Ipratropium/Albuterol Neb 3 ML IH SCH ×6 (00:20→19:50)
[2021-12-01] MEDS: MethylPREDNISolone 40 MG/ML VIAL IVP SCH ×3 (01:05→18:02)
[2021-12-01] MEDS: *HR* Heparin 5,000 UNIT/ML VIAL SQ SCH ×3 (05:28→20:59)
[2021-12-01 06:52] LABS: Basophils % 0.1 %; Hematocrit 37.1 % (35.3-44.9); Hemoglobin 12.1 g/dL (11.5-15.4); Immature Granulocytes % 0.5 % (0-4); Lymphocytes # 0.5 K/mcL (0.6-4.6); Lymphocytes % 5.9 %; Mean Corpuscular HGB Conc 32.6 g/dL (31.6-35.5); Mean Corpuscular Volume 91.8 fL (83.0-100.0); Mean Platelet Volume 10.3 fL (9.4-12.4); Monocytes # 0.5 K/mcL (0.0-1.3); Neutrophils # 7.8 K/mcL (1.6-8.9); Platelet Count 254 K/mcL (140-400); Red Blood Count 4.04 M/mcL (3.82-4.97); Red Cell Distribution Width 12.6 % (11.5-14.5); Segmented Neutrophils % 87.5 %; White Blood Count 8.9 K/mcL (4.3-11.1)
[2021-12-01 07:06] LABS: BUN/Creatinine Ratio 35 (6-26); Blood Urea Nitrogen 20 mg/dL (8-23); Carbon Dioxide 30 mEq/L (23-29); Chloride 103 mEq/L (98-107); Glucose 172 mg/dL (70-105); Osmolality,Calculated 289 (280-300); Potassium 4.2 mEq/L (3.5-5.1); Sodium 136 mEq/L (136-145); eGFR For African Americans > 60 (> 60); eGFR For Non-African Americans > 60 (> 60)
[2021-12-01] MEDS: Budesonide/Formoterol 160/4.5 1 PUFF INH IH SCH ×2 (07:28→19:50)
[2021-12-01] MEDS: Roflumilast [Daliresp] 500 MCG Tablet PO SCH (07:45)
[2021-12-01] MEDS: *HR* Acetylcysteine 20% 600 MG/3 ML ORAL SYRINGE PO SCH (07:53)
[2021-12-01 14:11] LABS: Adenovirus Not Detected (Not Detect); Coronavirus 229E Not Detected (Not Detect); Coronavirus HKU1 Not Detected (Not Detect); Coronavirus NL63 Not Detected (Not Detect); Coronavirus OC43 Not Detected (Not Detect); Human Metapneumovirus DETECTED (Not Detect); Human Rhinovirus/Enterovirus Not Detected (Not Detect); Influenza A Subtype 2009 H1 Not Detected (Not Detect); SARS-CoV-2 Not Detected (Not Detect)
[2021-12-01 14:12] LABS: Bordetella Pertussis Not Detected (Not Detect); Chlamydophila pneumoniae Not Detected (Not Detect); Influenza B Not Detected (Not Detect); Mycoplasma pneumoniae Not Detected (Not Detect); Parainfluenza Virus 1 Not Detected (Not Detect); Parainfluenza Virus 2 Not Detected (Not Detect); Parainfluenza Virus 3 Not Detected (Not Detect); Parainfluenza Virus 4 Not Detected (Not Detect); Respiratory Syncytial Virus Not Detected (Not Detect)
[2021-12-01] MEDS: Azithromycin 500 MG in 0.9 % Sodium Chloride 250 ML IVPB SCH (14:18)
[2021-12-02] MEDS: Ipratropium/Albuterol Neb 3 ML IH SCH ×7 (00:11→23:46)
[2021-12-02] MEDS: MethylPREDNISolone 40 MG/ML VIAL IVP SCH ×2 (05:50→17:28)
[2021-12-02] MEDS: *HR* Heparin 5,000 UNIT/ML VIAL SQ SCH ×3 (05:53→21:14)
[2021-12-02] MEDS: Budesonide/Formoterol 160/4.5 1 PUFF INH IH SCH ×2 (07:31→20:10)
[2021-12-02] MEDS: *HR* Acetylcysteine 20% 600 MG/3 ML ORAL SYRINGE PO SCH (07:44)
[2021-12-02] MEDS: Roflumilast [Daliresp] 500 MCG Tablet PO SCH (08:01)
[2021-12-02] MEDS: Azithromycin 500 MG in 0.9 % Sodium Chloride 250 ML IVPB SCH (14:13)
[2021-12-03] MEDS: Ipratropium/Albuterol Neb 3 ML IH SCH ×6 (03:49→23:45)
[2021-12-03] MEDS: MethylPREDNISolone 40 MG/ML VIAL IVP SCH ×2 (05:48→18:32)
[2021-12-03] MEDS: *HR* Heparin 5,000 UNIT/ML VIAL SQ SCH ×3 (05:49→20:56)
[2021-12-03] MEDS: Budesonide/Formoterol 160/4.5 1 PUFF INH IH SCH ×2 (07:36→20:12)
[2021-12-03] MEDS: Roflumilast [Daliresp] 500 MCG Tablet PO SCH (08:09)
[2021-12-03] MEDS: *HR* Acetylcysteine 20% 600 MG/3 ML ORAL SYRINGE PO SCH (08:54)
[2021-12-03] MEDS ORDERED: Furosemide 40 MG/4 ML VIAL IVP ONE (09:55)
[2021-12-03 10:44] LABS: Basophils # 0.1 K/mcL (0.0-0.2); Basophils % 0.5 %; Eosinophils % 0.3 %; Hematocrit 43.1 % (35.3-44.9); Hemoglobin 13.2 g/dL (11.5-15.4); Immature Granulocytes % 1.2 % (0-4); Lymphocytes # 0.7 K/mcL (0.6-4.6); Lymphocytes % 7.3 %; Mean Corpuscular HGB Conc 30.6 g/dL (31.6-35.5); Mean Corpuscular Hemoglobin 28.8 pg (28.0-33.3); Mean Corpuscular Volume 93.9 fL (83.0-100.0); Mean Platelet Volume 9.9 fL (9.4-12.4); Monocytes # 0.5 K/mcL (0.0-1.3); Monocytes % 5.6 %; Neutrophils # 7.9 K/mcL (1.6-8.9); Platelet Count 297 K/mcL (140-400); Red Blood Count 4.59 M/mcL (3.82-4.97); Red Cell Distribution Width 12.9 % (11.5-14.5); Segmented Neutrophils % 85.1 %; White Blood Count 9.3 K/mcL (4.3-11.1)
[2021-12-03 11:03] LABS: BUN/Creatinine Ratio 22 (6-26); Blood Urea Nitrogen 13 mg/dL (8-23); Calcium 9.1 mg/dL (8.6-10.3); Carbon Dioxide 33 mEq/L (23-29); Chloride 99 mEq/L (98-107); Glucose 175 mg/dL (70-105); Osmolality,Calculated 292 (280-300); Sodium 139 mEq/L (136-145); eGFR For African Americans > 60 (> 60); eGFR For Non-African Americans > 60 (> 60)
[2021-12-03] MEDS: Azithromycin 500 MG in 0.9 % Sodium Chloride 250 ML IVPB SCH (14:59)
[2021-12-04] MEDS: Ipratropium/Albuterol Neb 3 ML IH SCH ×6 (03:32→23:08)
[2021-12-04] MEDS: MethylPREDNISolone 40 MG/ML VIAL IVP SCH ×2 (05:34→17:20)
[2021-12-04] MEDS: *HR* Heparin 5,000 UNIT/ML VIAL SQ SCH ×3 (05:35→21:42)
[2021-12-04] MEDS: Roflumilast [Daliresp] 500 MCG Tablet PO SCH (07:20)
[2021-12-04] MEDS: Budesonide/Formoterol 160/4.5 1 PUFF INH IH SCH ×2 (07:42→19:57)
[2021-12-04] MEDS: *HR* Acetylcysteine 20% 600 MG/3 ML ORAL SYRINGE PO SCH (09:02)
[2021-12-04] MEDS: Azithromycin 500 MG in 0.9 % Sodium Chloride 250 ML IVPB SCH (13:05)
[2021-12-05 01:07] LABS: VBG HCO3 33 mEq/L (21-27); VBG PCO2 53 mmHg (41-51); VBG PO2 110 mmHg (25-50)
[2021-12-05 01:26] LABS: BUN/Creatinine Ratio 23 (6-26); Blood Urea Nitrogen 12 mg/dL (8-23); Carbon Dioxide 32 mEq/L (23-29); Chloride 101 mEq/L (98-107); Glucose 142 mg/dL (70-105); Osmolality,Calculated 286 (280-300); Potassium 4.2 mEq/L (3.5-5.1); Sodium 137 mEq/L (136-145); eGFR For African Americans > 60 (> 60); eGFR For Non-African Americans > 60 (> 60)
[2021-12-05] MEDS: Ipratropium/Albuterol Neb 3 ML IH SCH ×3 (03:34→09:47)
[2021-12-05] MEDS: MethylPREDNISolone 40 MG/ML VIAL IVP SCH (05:28)
[2021-12-05] MEDS: *HR* Heparin 5,000 UNIT/ML VIAL SQ SCH ×2 (05:29→13:23)
[2021-12-05] MEDS: *HR* Acetylcysteine 20% 600 MG/3 ML ORAL SYRINGE PO SCH (08:42)
[2021-12-05] MEDS: Budesonide/Formoterol 160/4.5 1 PUFF INH IH SCH (08:43)
[2021-12-05 10:21] VITALS: BP 126/81; PULSE 103; TEMP 98
[2021-12-05 11:12] VITALS: O2SAT 95
[2021-12-05] MEDS: Azithromycin 500 MG in 0.9 % Sodium Chloride 250 ML IVPB SCH (13:23)
== END 2021-12-05 15:01 | disposition home health service (06) | DRG 190 ==
LOC: EMEROOARM 09:00 → 3BNU 16:32 → SUATTDRO 16:32 → 3BNU 17:30
PROVIDERS: ADMIT Family Medicine; ATTEND Internal Medicine